=== PATIENT | male | born 2005 | race Caucasian/White ===

== ENCOUNTER 2025-01-16 19:19 | Emergency (ER) | payer OTHER, SELFPAY ==
--- NOTE | ~2025-01-16 | CT_ITS ---
CLINICAL HISTORY: RLQ abd pain CT abdomen and pelvis with contrast Comparison: None provided Findings: Examination is limited by motion artifact. LIMITED CHEST: Lung bases are clear. LIVER: No focal liver lesion. BILIARY: No gallbladder wall thickening, radiopaque stone, or ductal dilatation. PANCREAS: No mass or ductal dilatation. SPLEEN: No splenomegaly. KIDNEYS: No hydronephrosis or radiopaque stone. ADRENALS: No nodule. VASCULAR: No aneurysm. RETROPERITONEUM: No lymphadenopathy or mass. BOWEL/MESENTERY: No evidence of obstruction. No free fluid or air. Normal appendix. ABDOMINAL WALL: No mass or significant abnormality. URINARY BLADDER: No focal wall thickening. PELVIC NODES: No pelvic lymphadenopathy. PELVIC ORGANS: Normal for age. BONES: No acute fracture. OTHER: Negative. IMPRESSION: Examination is limited by motion artifact. Assessing through artifact, there appears to be a normal air-filled appendix (series 3, image 61). If there is continued clinical concern, recommend repeat imaging. This document has been electronically signed by: Akanksha Avina MD on 01/17/2025 00:53:01
[2025-01-16 19:22] VITALS: BP 122/67; PULSE 83; RESP 16; TEMP 36.6; O2SAT 98; BMI 26.4
--- NOTE | 2025-01-16 19:32 | ED_ITS ---
HPI - General Adult General Chief complaint: Abdominal Pain Stated complaint: Lower Abd Pain Time Seen by Provider: 01/16/25 22:41 Source: patient, RN notes reviewed and diplomatic interpreter/translator Mode of arrival: ambulatory Limitations: language barrier History of Present Illness ED Provider: Dr. Damaris Espinoza HPI narrative: 19-year-old male with no significant past medical history presenting with intermittent periumbilical abdominal pain radiating to his right lower quadrant ongoing for the last 3 days or so. Patient admits that the pain is worse with movement, particularly lifting boxes at the [employer] where he works. Denies testicular pain or swelling. Admits that the pain does radiate to his groin though. Denies associated fever, nausea, vomiting, bowel changes, urinary complaints, known sick contacts. Has not taken anything for pain at home. Related Data Previous Rx's ?Medication ?Instructions ?Recorded dicyclomine 20 mg tablet 20 mg PO TID #10 tabs Allergies Allergy/AdvReac Type Severity Reaction Status Date / Time No Known Allergies Allergy Verified 01/16/25 19:26 Review of Systems 2 Review of Systems: as per HPI, full review of systems performed and negative but for the above mentioned pertinent positives and negatives. Physical Exam ED Exam Exam: GENERAL: nontoxic appearing, appears uncomfortable. SKIN: Normal skin color for ethnicity, warm, dry, no rashes noted. HEENT: Normocephalic, atraumatic, no stridor, dry mucous membranes, dentition intact, EOMI, PERRLA. NECK: Soft, supple, full ROM, midline structures nontender, no step-offs, no deformities, no lymphadenopathy. CHEST: Heart regular rhythm, no murmurs, symmetric chest rise and fall. PULMONARY: Clear to auscultation bilaterally, diminished at the bases, no labored breathing, no wheezes/rhales/rhonchi. ABDOMINAL: Soft, nondistended, RLQ tenderness to palpation without voluntary guarding, hyperactive bowel sounds in all quadrants. : Deferred. MUSCULOSKELETAL: Normal tone, full range of motion, no deformities, no peripheral edema. NEURO: Alert and oriented x3, CN II through XII intact, equal strength and sensation bilateral upper and lower extremities, no focal neurologic deficits. PSYCHIATRIC: Flat affect, fluid speech, good eye contact and appropriate demeanor. Vital Signs: Vital Signs - 24 hr 01/16/25 19:22 01/16/25 21:21 Temperature 97.8 F 97.8 F Pulse Rate 83 80 Respiratory Rate 16 18 Blood Pressure 122/67 125/76 Pulse Oximetry 98 98 Oxygen Delivery Method Room Air Room Air BMI result Body Mass Index 26.4 Course Course Course Narrative: RME: 19-year-old male presents to ED for right lower quadrant groin pain for the past 3 days without any genitourinary symptoms. Patient states no nausea vomiting. Patient states diarrhea. labs and swabs orderedd Medications Administered Discontinued Medications Generic Name Dose Route Start Last Admin Trade Name Freq PRN Reason Stop Dose Admin Lactated Ringer's 1,000 mls @ 999 mls/hr 01/16/25 23:53 01/17/25 01:11 Lr IV 01/17/25 00:53 Infused .Q1H1M ONE Infusion Iohexol 85 ml 01/17/25 00:24 01/17/25 00:24 Iohexol 350 Mg/Ml 100 Ml Infus..Btl IV 01/17/25 00:25 85 ml ONCE ONE Administration Ketorolac Tromethamine 15 mg 01/16/25 23:53 01/17/25 00:00 Ketorolac Tromethamine 15 Mg/Ml Vial IVPUSH 01/16/25 23:54 15 mg ONCE ONE Administration Medical Decision Making Medical Decision Making [facility] Narrative: This patient presents today with a chief complaint of abdominal pain. Differential diagnosis for this patient is broad.? It includes appendicitis, hernia, bowel obstruction, diverticulitis, testicular torsion, pyelonephritis/UTI, vascular pathology, among many others.? A broad-based workup based on history and physical examination was obtained. ? Patient was given toradol for pain control. ? Patient's white blood cell count is low, he is afebrile however, he is tender on exam and I will rule out appendicitis with CT. No testicular pain to suggest intermittent torsion. Urine is clean. Differential Diagnosis Differential Diagnoses: The differential diagnosis associated with the presentation includes (as above) Admission/Observation Consideration of admission/observation: Escalation of care including admission/observation considered Lab Data [facility] Lab Attestation statement: I reviewed the patient's lab results. 01/16/25 20:06 01/16/25 20:06 Labs: Lab Results 01/16/25 Range/Units 20:06 WBC 7.9 (4.8-10.8) X10*3/uL RBC 5.52 (4.60-5.80) X10*6/uL Hgb 15.3 (14.0-18.0) g/dl Hct 46.4 (42.0-52.0) % MCV 84.1 (80.0-98.0) fL MCH 27.7 (27.0-33.0) pg MCHC 33.0 (31.0-36.0) g/dl RDW 12.5 (11.0-16.0) % Plt Count 244 (160-400) X10*3/uL MPV 10.7 (9.4-12.4) fL Immature Gran % (Auto) 0.1 (0.0-0.4) % Neut % (Auto) 56.8 (45-73) % Lymph % (Auto) 33.7 (20-40) % Osborne % (Auto) 6.4 (2-11) % Eos % (Auto) 2.0 (0-4) % Baso % (Auto) 1.0 (0-2) % Lymph # (Auto) 2.7 (1.2-4.9) X10*3/uL Osborne # (Auto) 0.5 (0.1-1.2) X10*3/uL Eos # (Auto) 0.2 (0.0-0.4) X10*3/uL Baso # (Auto) 0.1 (0.0-0.2) X10*3/uL Abs Immat Gran (auto) 0.01 (0.00-0.03) X10*3/uL Absolute Neuts (auto) 4.5 (2.0-8.3) x10*3/uL Absolute Nucleated RBC 0.000 (0.0-0.012) X10*3/uL Nucleated RBC % (auto) 0.0 (0.0-0.2) /100WBC Sodium 142 (135-145) mmol/L Potassium 4.1 (3.3-5.1) mmol/L Chloride 108 (96-108) mmol/L Carbon Dioxide 27 (22-29) mmol/L Anion Gap 11 L (12-20) BUN 16 (9-16) mg/dL Creatinine 0.80 (0.5-1.4) mg/dL Estim Creat Clear Calc 131.8 Estimated GFR > 60 Random Glucose 109 (60-115) mg/dL Calcium 9.9 (8.4-10.2) mg/dL Total Bilirubin 0.4 (0.0-1.0) mg/dL AST 51 H (5-37) U/L ALT 85 H (0-40) U/L Alkaline Phosphatase 149 H (39-117) U/L Total Protein 8.2 H (6.5-8.0) g/dL Albumin 5.4 H (3.5-5.0) g/dL Lipase 13 (8-78) U/L Urine Color Yellow Urine Appearance Turbid Urine pH 7.0 (5.0-9.0) Ur Specific [place] 1.025 (1.005-1.025) Urine Protein Negative (Neg-Trace) mg/dL Urine Glucose (UA) Negative (Negative) mg/dL Urine Ketones Negative (Negative) mg/dL Urine Blood Negative (Negative) Urine Nitrite Negative (Negative) Ur Leukocyte Esterase Negative (Negative) Influenza Type A (PCR) NEGATIVE (Negative) Influenza Type B (PCR) NEGATIVE (Negative) RSV RNA Qual (PCR) NEGATIVE (Negative) SARS-CoV-2 RNA (RT-PCR) NEGATIVE (Negative) S. pyogenes GrpA KRISTOPHER Negative (Negative) Discharge Plan Discharge Clinical Impression: Acute abdominal pain, Abdominal bloating, Constipation Patient Disposition: Home, Self-Care Additional Instructions: DIAGNOSIS & TREATMENT: You were seen in the Emergency Department for your abdominal pain. We performed laboratory work and a CT scan of your abdomen and pelvis which did not reveal any acute abnormalities that would explain your symptoms. FURTHER CARE: We have not found any emergent physical exam or lab abnormalities that would require admission to the hospital today. Many people who come to the ER with abdominal pain do not leave with a specific diagnosis at the end of their visit. In the Emergency Department we try to make sure that there is no emergent problem that needs surgery or antibiotics right now. This does not mean that your evaluation is complete--please be sure to follow up with your regular doctor as additional testing as an outpatient may be indicated Please be certain to drink plenty of fluids over the next several. You should advance your diet as tolerated. You may wish to start with the BRAT diet (bananas, rice, applesauce, toast). WHEN YOU SHOULD BE SEEN NEXT: Please follow-up with your primary care provider within the next 2-3 days for reevaluation of your symptoms. WHEN TO RETURN TO THE ED: Monitor your symptoms closely and return to the emergency department immediately for any new/worsening symptoms, worsening abdominal pain, pain which changes location (particularly if it moved to the right lower quadrant), nausea, vomiting, blood in your stool, black/tarry stools, chest pain, shortness of breath, fevers, chills, night sweats, you are unable to arrange follow-up care, or any other concerning symptoms. DIAGN?STICO Y TRATAMIENTO: Acudi? al servicio de urgencias por un dolor abdominal. Le realizamos an?lisis de laboratorio y edilia tomograf?a computarizada del abdomen y la pelvis, que no revelaron ninguna anomal?a aguda que explicara nadia s?ntomas. ATENCI?N POSTERIOR: No hemos encontrado ninguna anomal?a urgente en el examen f?sico ni en los an?lisis de laboratorio que requiera klein ingreso en el hospital hoy. Muchas personas que acuden a Urgencias con dolor abdominal no salen con un diagn?stico espec?fico al final de klein visita. En el servicio de urgencias intentamos asegurarnos de que no hay reina?n problema urgente que requiera cirug?a o antibi?ticos en carmelita momento. Cuartelez no significa que klein evaluaci?n haya concluido; aseg?rese de acudir a klein m?dico habitual, ya que es posible que se le indiquen pruebas adicionales cathy paciente ambulatorio. Aseg?rese de beber mucho l?quido lou los pr?ximos d?as. Debe avanzar en klein dieta seg?n la tolere. Es posible que desee comenzar con la dieta BRAT (pl?tanos, arroz, pur? de manzana, tostadas). CU?NDO DEBE VOLVER A ACUDIR: Acuda a klein m?dico de cabecera en los pr?ximos 2-3 d?as para que le vuelva a evaluar los s?ntomas. CU?NDO DEBE VOLVER A LA ABRAN DE URGENCIAS: Controle atentamente nadia s?ntomas y acuda inmediatamente a la abran de urgencias si presenta s?ntomas nuevos o que empeoran, dolor abdominal que empeora, dolor que cambia de ubicaci?n (especialmente si se desplaza al cuadrante inferior derecho), n?useas, v?mitos, martell en las heces, heces negras o alquitranadas, dolor en el pecho, dificultad para respirar, fiebre, escalofr?os, sudores nocturnos, incapacidad para arrancar... Prescriptions: New dicyclomine 20 mg tablet 20 mg PO TID Qty: 10 0RF Interventions: ED Discharge Assessment Last Done: 01/17/25 01:31 Discharge Date/Time: 01/17/25 01:32 Print Language: Cameroonian
[2025-01-16 20:13] LABS: MANUAL DIFF FLAG NO
[2025-01-16 20:14] LABS: Appearance Urine Turbid; Glucose Urine UA Negative (Negative); PH 7.0 (5.0-9.0); Specific Gravity - Urine 1.025 (1.005-1.025)
[2025-01-16 20:21] LABS: IDNOW Serial# 55D5AD1C; Strep A Nucleic Acid Negative (Negative)
[2025-01-16 20:22] LABS: Hematocrit 46.4 % (42.0-52.0); Hemoglobin 15.3 g/dl (14.0-18.0); Imm Gran Abs Auto 0.01 X10*3/uL (0.00-0.03); Imm Gran Pct Auto 0.1 % (0.0-0.4); Lymphocytes Absolute Auto 2.7 X10*3/uL (1.2-4.9); Mean Corpuscular HGB Conc 33.0 g/dl (31.0-36.0); Mean Corpuscular Hemoglobin 27.7 pg (27.0-33.0); Mean Corpuscular Volume 84.1 fL (80.0-98.0); NRBC Abs Auto 0.000 X10*3/uL (0.0-0.012); NRBC Pct Auto 0.0 /100WBC (0.0-0.2); Platelet Count 244 X10*3/uL (160-400); Red Blood Count 5.52 X10*6/uL (4.60-5.80); White Blood Count 7.9 X10*3/uL (4.8-10.8)
[2025-01-16 20:27] LABS: Alanine Aminotransferase 85 U/L (0-40); Albumin Level 5.4 g/dL (3.5-5.0); Alkaline Phosphatase 149 U/L (39-117); Anion Gap 11 (12-20); Aspartate Amino Transferase 51 U/L (5-37); Blood Urea Nitrogen 16 mg/dL (9-16); Calcium 9.9 mg/dL (8.4-10.2); Carbon Dioxide 27 mmol/L (22-29); Chloride 108 mmol/L (96-108); Creatinine Clr Calc Pharmacy 131.8; Estimated Glomerular Filt Rate > 60; Lipase 13 U/L (8-78); Potassium 4.1 mmol/L (3.3-5.1); Sodium 142 mmol/L (135-145); Total Protein 8.2 g/dL (6.5-8.0)
[2025-01-16 20:51] LABS: Resp Syncy Virus RNA Qual PCR NEGATIVE (Negative); SARS COV2 PCR INHOUSE NEGATIVE (Negative)
--- OUTSIDE RECORDS SUMMARY | 2025-01-16 21:09 | XMS_ITS | Clinical Summary ---
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 Name Role Phone Unavailable Primary Care Provider Unavailabl e Allergies No known active allergies Medications No known medications Active Problems Problem Noted Date Diagnosed Date Dental caries 08/14/2024 Tipped teeth 06/26/2024 Decalcification, teeth 06/26/2024 Periodontal disease 06/26/2024 Dental calculus 06/26/2024 Dental abscess 06/26/2024 Malocclusion 06/26/2024 Acute gingival inflammation 06/26/2024 Encounters Date Type Department Care Team Description 01/01/2025 8:45 AM EST Office Visit [facility] [address] [place] [address] Mili Liu Dental calculus (Primary Dx); Malocclusion 12/18/2024 2:45 PM EDT Office Visit [facility] [address] [place] [address] Curtis Grider, DIGNA 12/11/2024 8:00 AM EDT Office Visit [facility] [address] [place] [address] Tha Marques DDS Dental caries (Primary Dx) 12/04/2024 Travel 11/06/2024 8:00 AM EDT Office Visit [facility] [address] [place] [address] Tha Marques DDS Dental caries (Primary Dx) from Last 3 Months Social History Tobacco Use Types Packs/Day Years Used Date Smoking Tobacco: Never Smokeless Tobacco: Never Tobacco Cessation:Counseling Given: Not Answered Alcohol Use Standard Drinks/Week Comments Defer 0 (1 standard drink = 0.6 oz pur e alcohol) Sex and Gender Information Value Date Recorded Sex Assigned at Male 01/16/2024 8:44 AM EST Legal Sex Male 10:21 AM EDT Gender Identity Male 01/16/2024 8:44 AM EST Sexual Orientation Straight 01/16/2024 8: 44 AM EST Last Filed Vital Signs Vital Sign Reading Time Taken Comments Blood Pressure 122/70 01/01/2025 8:57 AM EST Pulse 68 09/18/2024 8:03 AM EDT Temperature - - Respiratory Rate - - Oxygen Saturation - - Inhaled Oxygen Concentration - - Weight - - Height - - Body Mass Index - - Plan of Treatment Upcoming Encounters Date Type Department Care Team (Late st Contact Info) Description 01/22/2025 8:00 AM EST Office Visit [facility] [address], [place] [id number] Ceasar Stanford [address] [place] [address] 07/02/2025 8:00 AM EDT Office Visit [facility] [address] [place] [address] Noe, Mili [address] [place] [address] Health Maintenance Due Date Last Done Comments Chlamydia and Gonorrhea Screening 2003 Depression Screening 2003 HIV Screening 2003 SDOH Screening 2003 Disability Screening 2003 Alcohol/Substance Use Screening 2015 Family Planning (PISQ) 09/08/2018 HPV Vaccines (1 - Male 3-dose series) 09/08/2018 Meningococcal B Vaccine (1 of 2 - Standard) 2019 Hepatitis C Screening 09/08/2021 DTaP/Tdap/Td Vaccines (1 - Tdap) 09/08/2022 Hepatitis A Vaccines (1 of 2 - Risk 2-dose series) 09/08/2022 Hepatitis B Vaccines (1 of 3 - 19+ 3-dose series) 09/08/2022 COVID-19 Vaccine (1 - 2024- season) 2024 Influenza Vaccine (#1) 2024 Dental Oral Exam 12/27/2024 06/26/2024 Dental Prophylaxis 07/02/2025 01/01/2025, 06/26/2024 Dental X-Ray: Bitewings 10/16/2025 10/16/19 25, 10/08/2024, 06/26/2024, Additional history exists Tobacco Screening 01/01/2026 01/01/2025 Dental X-Ray: Full Mouth 06/28/2027 06/26/2024 Zoster Vaccines (1 of 2) 09/08/2053 RSV Patients and Patients Aged 60 years or older (1 - 1-dose 75+ series) 09/08/2078 HIB Vaccines Aged Out No longer eligi ble based on patient's age to complete this topic IPV Vaccines Aged Out No longer eligi ble based on patient's age to complete this topic Meningococcal Vaccine Aged Out No bertin arun eligible based on patient's age to complete this topic Pneumococcal Vaccine: Pediatrics (0 to 5 Years) and At-Risk Patients (6 to 49) Years Aged Out No longer eligible based on patient's age to complete this topic RSV under 20 months Aged Out No longe r eligible based on patient's age to complete this topic Rotavirus Vaccines Aged Out No longer eligible based on patient's age to complete this topic Procedures Procedure Name Priority Date/Time Associated Diagnosis Comments ORAL HYGIENE INSTRUCTIONS Routine 2024 8:45 AM EST Dental calculus Malocclusion CASE PRESENTATION, DETAILED AND EXTENSIVE TREATMENT PLANNING Routine 01/01/2025 8:45 AM EST Dental calculus Malocclusion PROPHYLAXIS - ADULT Routine 01/01/2025 8 :45 AM EST Dental calculus CONSULTATION - DIAGNOSTIC SERVICE PROVIDED BY DENTIST OR PHYSICIAN OTHER THAN REQUESTING DENTIST OR PHYSICIAN Routine 12/18/2024 2:45 PM EDT CASE PRESENTATION, DETAILED AND EXTENSIVE TREATMENT PLANNING Routine 12/11/2024 8:00 AM EDT 12 O RESIN-BASED COMPOSITE - 1 SURF, POSTERIOR Routine 12/11/2024 8:00 AM EDT 16 O RESIN-BASED COMPOSITE - 1 SURF, POSTERIOR Routine 12/11/2024 8:00 AM EDT 15 MO RESIN-BASED COMPOSITE - 2 SURF, POSTERIOR Routine 12/11/2024 8:00 AM EDT 13 DO RESIN-BASED COMPOSITE - 2 SURF, POSTERIOR Routine 12/11/2024 8:00 AM EDT CASE PRESENTATION, DETAILED AND EXTENSIVE TREATMENT PLANNING Routine 11/06/2024 8:00 AM EDT 7 DL RESIN-BASED COMPOSITE - 2 SURF, ANTERIOR Routine 11/06/2024 8:00 AM EDT 5 O RESIN-BASED COMPOSITE - 1 SURF, POSTERIOR Routine 11/06/2024 8:00 AM EDT BITEWINGS - 2 RADIOGRAPHIC IMAGES Routine 10/15/2024 11:00 AM EDT Periodontal disease Dental calculus INTRAORAL - COMPLETE SERIES OF RADIOGRAPHIC IMAGES Routine 06/26/2024 8:00 AM EDT Tipped teeth Decalcification, teeth Periodontal disease Dental calculus Dental abscess Malocclusion COMPREHENSIVE ORAL EVALUATION - NEW OR ESTABLISHED PATIENT Routine 06/26/2024 8:00 AM EDT from Last 3 Months or Most Recently Relevant to Health Maintenance Insurance [employer] [address] [id number] DENTAL - HSN PARTIAL (MEDICAID)
[2025-01-16 21:21] VITALS: BP 125/76; PULSE 80; RESP 18; TEMP 36.6; O2SAT 98
[2025-01-17] MEDS: Lactated Ringers 1,000 ML 999 ML IV (00:01)
[2025-01-17] MEDS: iohexoL 350 MG/ML 100 ML INFUS..BTL 85 ML IV (00:24)
[2025-01-17 01:31] VITALS: BP 125/76; PULSE 80; RESP 18; TEMP 36.6; O2SAT 98
== END 2025-01-17 01:32 | disposition home or self-care (01) ==
PROVIDERS: Emergency Provider Emergency Medicine
DX: R10.31 Right lower quadrant pain (principal); K59.00 Constipation, unspecified; R14.0 Abdominal distension (gaseous); Z03.818 Encounter for observation for suspected exposure to other biological agents ruled out
CPT/HCPCS: 36415; 74177; 80053; 81003; 83690; 85025; 87637; 87651; 96361; 96374; 99284; J1885; J7120; Q9967

== ENCOUNTER → 2025-01-17 | Outpatient (BNV) | payer SELFPAY | PROVIDERS: Emergency Provider Emergency Medicine; Visit Provider Student in an Organized Health Care Education/Training Program | DX: R10.31 Right lower quadrant pain (principal) | CPT/HCPCS: 74177 ==